=== PATIENT | female | born 1950 | race Caucasian/White ===

== ENCOUNTER 2024-09-07 09:25 | Inpatient (IN) ==
[2024-09-07] MEDS: cefTRIAXone 1 gm/50 mL D5W 1 GM/50 ML BAG IV ONE (11:07)
[2024-09-07 11:12] LABS: ABS Basophils 0.1 10^3/uL (0.0-0.1); ABS Eosinophils 0.7 10^3/uL (0.0-0.5); ABS Lymphocytes 1.4 10^3/uL (1.0-4.8); ABS Monocytes 1.2 10^3/uL (0.0-0.9); ABS Neutrophils 5.9 10^3/uL (1.5-7.6); ABS Nucleated RBC 0.01 10^3/ul; Eosinophil % 7.3 %; Hematocrit 29.5 % (35-45); Hemoglobin 9.6 g/dL (11.5-14.3); Lymphocyte % 15.3 %; Mean Corpuscular Hemoglobin 28.1 pg (27-33); Mean Corpuscular Hgb Conc 32.8 g/dL (31-36); Mean Corpuscular Volume 85.8 fL (80-97); Mean Platelet Volume 9.6 fL (7.5-11.2); Nucleated Red Blood Cells % 0.1 %/100WBC (0.0-0.8); Platelet Count 225 10^3/uL (150-450); Red Blood Count 3.43 10^6/uL (3.63-4.92); Red Cell Distribution Width 18.8 % (12-17); White Blood Count 9.2 10^3/uL (3.8-11.8)
[2024-09-07 11:26] LABS: Activated Partial Thrombo Time 38.7 seconds (26.0-38.0); INR 1.66 (0.85-1.14)
[2024-09-07 11:43] LABS: Albumin 3.3 g/dL (3.5-5.7); Albumin/Globulin Ratio 1.3 (1-3); C Reactive Protein 52.99 mg/L (<8.01); Calcium 8.3 mg/dL (8.6-10.3); Creatinine, Serum 2.21 mg/dL (0.51-0.95); Globulin 2.6 g/dL (2-4); Potassium 2.8 mmol/L (3.5-5.0); Total Protein 5.9 g/dL (6.4-8.9); eGFR CKD-EPI 22.5 (>60)
[2024-09-07] MEDS: Lactated Ringers 1000 ml BAG 1,000 ML IV ONE ×3 (11:53→18:30)
[2024-09-07 12:31] LABS: High Sensitivity Troponin 1 Hr 9 pg/mL (<15)
[2024-09-07] MEDS: Azithromycin 500 mg/250 ml NS 500 MG/250 ML BAG IVPB ONE (12:33)
[2024-09-07 15:12] LABS: Urine Appearance Clear; Urine Bilirubin Negative (Negative); Urine Blood Negative (Negative); Urine Color Yellow; Urine Glucose Trace (Negative); Urine Ketones Negative (Negative); Urine Nitrite Negative (Negative); Urine Protein 1+ (>=30 mg/dL) (Negative); Urine Specific Gravity 1.019 (1.002-1.030); Urine Urobilinogen Negative (Negative)
[2024-09-07 15:13] LABS: Urine Bacteria Absent /HPF (Absent); Urine Red Blood Cell Trace(0-2/hpf) /HPF (0-Trace); Urine White Blood Cell Trace(0-5/hpf) /HPF (0-Trace)
[2024-09-07 15:21] LABS: Magnesium 2.2 mg/dL (1.9-2.7)
[2024-09-07 15:31] LABS: Direct Bilirubin 0.4 mg/dL (0.03-0.18); Indirect Bilirubin 0.6 mg/dL (0.3-1.0)
[2024-09-07 15:36] LABS: TSH Ultra Thyroid Stim Horm 3.29 mcIU/mL (0.34-5.60)
[2024-09-07] MEDS: KCL 20 MEQ/100 ML IVPREMIX 20 MEQ/100 ML BAG IV SCH (17:10)
[2024-09-07] MEDS ORDERED: Naloxone Nasal Spray 4 MG/0.1 ML NASAL.SPR INTRANASAL PRN (17:15)
[2024-09-07] MEDS ORDERED: Polyethylene Glycol 3350 17 GM PACKET PO PRN (17:30)
[2024-09-07] MEDS ORDERED: Senna TAB 8.6 mg TAB PO PRN (17:30)
[2024-09-07] MEDS ORDERED: cefTRIAXone 1 gm/50 mL D5W 1 GM/50 ML BAG IV SCH (18:00)
[2024-09-07] MEDS: Magnesium Hydroxide LIQ 30 ML UDC PO SCH (20:22)
[2024-09-07] MEDS: Senna TAB 8.6 mg TAB PO SCH (20:34)
[2024-09-08 00:05] LABS: Calcium 8.3 mg/dL (8.6-10.3); Creatinine, Serum 1.47 mg/dL (0.51-0.95); Potassium 3.6 mmol/L (3.5-5.0); eGFR CKD-EPI 36.8 (>60)
[2024-09-08] MEDS: Potassium Chloride LIQUID 20 MEQ/15 ML LIQUID PO ONE (02:49)
[2024-09-08 06:01] LABS: ABS Basophils 0.1 10^3/uL (0.0-0.1); ABS Eosinophils 0.6 10^3/uL (0.0-0.5); ABS Lymphocytes 1.2 10^3/uL (1.0-4.8); ABS Monocytes 0.9 10^3/uL (0.0-0.9); ABS Neutrophils 4.5 10^3/uL (1.5-7.6); Eosinophil % 8.1 %; Hematocrit 28.2 % (35-45); Hemoglobin 9.1 g/dL (11.5-14.3); Lymphocyte % 16.7 %; Mean Corpuscular Hemoglobin 27.7 pg (27-33); Mean Corpuscular Hgb Conc 32.1 g/dL (31-36); Mean Corpuscular Volume 86.1 fL (80-97); Mean Platelet Volume 9.5 fL (7.5-11.2); Nucleated Red Blood Cells % 0.1 %/100WBC (0.0-0.8); Platelet Count 189 10^3/uL (150-450); Red Blood Count 3.28 10^6/uL (3.63-4.92); Red Cell Distribution Width 19.1 % (12-17); White Blood Count 7.2 10^3/uL (3.8-11.8)
[2024-09-08 06:28] LABS: Albumin 2.7 g/dL (3.5-5.7); Albumin/Globulin Ratio 1.1 (1-3); Calcium 8.1 mg/dL (8.6-10.3); Creatinine, Serum 1.15 mg/dL (0.51-0.95); Globulin 2.4 g/dL (2-4); Magnesium 1.8 mg/dL (1.9-2.7); Phosphorus 1.8 mg/dL (2.5-5.0); Potassium 3.6 mmol/L (3.5-5.0); Total Bilirubin 0.8 mg/dL (0.2-1.0); Total Protein 5.1 g/dL (6.4-8.9); eGFR CKD-EPI 49.4 (>60)
[2024-09-08] MEDS ORDERED: Lorazepam PYXIS KEY PRN (09:33)
[2024-09-08] MEDS: LORazepam 2 mg VIAL 1 ml IV PUSH PRN ×2 (09:45→17:24)
[2024-09-08] MEDS: cefTRIAXone 1 gm/50 mL D5W 1 GM/50 ML BAG IV SCH (10:27)
[2024-09-08] MEDS: Azithromycin 500 mg/250 ml NS 500 MG/250 ML BAG IVPB SCH (10:38)
[2024-09-08] MEDS ORDERED: Zosyn per Pharmacy NOTE FOLLOW UP SCH (11:00)
[2024-09-08] MEDS ORDERED: Vancomycin per Pharmacy 1 EA NOTE FOLLOW UP SCH (11:00)
[2024-09-08] MEDS: Iodixanol 320 (CONTRAST) 100 ML SDV IV ONE (11:41)
[2024-09-08] MEDS: Piperacillin/Tazobac 3.375 BAG 3.375 GM/100 ML BAG IV ONE (12:19)
[2024-09-08] MEDS: Vancomycin 1,000 MG in NS 0.9% 250 ml 250 ML IVPB ONE (12:22)
[2024-09-08] MEDS: Magnesium Sulfate 2 gm BAG 2 GM/50 ML BAG IVPB ONE (12:29)
[2024-09-08] MEDS: Polyethylene Glycol 3350 17 GM PACKET PO SCH (13:12)
[2024-09-08] MEDS: DULoxetine DR 60 mg CAP PO SCH (15:40)
[2024-09-08] MEDS: Lactated Ringers 1000 ml BAG 1,000 ML IV SCH (16:24)
[2024-09-08] MEDS: ZOSYN 3.375 GM Q8H per EXTENDED INFUSION IV SCH (16:28)
[2024-09-08] MEDS: Enoxaparin 80 MG/0.8 ML SYR SUBCUT SCH (16:29)
[2024-09-08] MEDS: Haloperidol 5 mg/ml SDV IV/IM 5 MG/ML AMP IV SLOW PU ONE (23:21)
[2024-09-09] MEDS: Haloperidol 5 mg/ml SDV IV/IM 5 MG/ML AMP IV SLOW PU ONE (04:04)
[2024-09-09 05:58] LABS: ABS Basophils 0.1 10^3/uL (0.0-0.1); ABS Eosinophils 0.3 10^3/uL (0.0-0.5); ABS Lymphocytes 1.3 10^3/uL (1.0-4.8); ABS Monocytes 1.2 10^3/uL (0.0-0.9); ABS Neutrophils 7.9 10^3/uL (1.5-7.6); Eosinophil % 2.5 %; Hematocrit 31.9 % (35-45); Hemoglobin 10.4 g/dL (11.5-14.3); Lymphocyte % 12.4 %; Mean Corpuscular Hgb Conc 32.7 g/dL (31-36); Mean Corpuscular Volume 85.7 fL (80-97); Mean Platelet Volume 10.1 fL (7.5-11.2); Platelet Count 209 10^3/uL (150-450); Red Blood Count 3.73 10^6/uL (3.63-4.92); Red Cell Distribution Width 18.8 % (12-17); White Blood Count 10.8 10^3/uL (3.8-11.8)
[2024-09-09 06:26] LABS: Calcium 8.3 mg/dL (8.6-10.3); Creatinine, Serum 0.75 mg/dL (0.51-0.95); Magnesium 1.7 mg/dL (1.9-2.7); Potassium 3.4 mmol/L (3.5-5.0); eGFR CKD-EPI 82.5 (>60)
[2024-09-09 08:05] LABS: Total Bilirubin 1.2 mg/dL (0.2-1.0)
[2024-09-09] MEDS: Haloperidol 5 mg/ml SDV IV/IM 5 MG/ML AMP IV SLOW PU PRN (08:55)
[2024-09-09] MEDS ORDERED: Haloperidol 5 mg/ml SDV IV/IM 5 MG/ML AMP IV SLOW PU PRN ×2 (11:21→14:02)
[2024-09-09] MEDS: LORazepam 2 mg VIAL 1 ml IV PUSH PRN (11:36)
[2024-09-09] MEDS ORDERED: Vancomycin 1000 MG in NS 0.9% 250 ML IVPB SCH (12:30)
[2024-09-09] MEDS ORDERED: LORazepam 2 mg VIAL 1 ml IV PUSH PRN (12:31)
[2024-09-09] MEDS: Acetaminophen IV 1 GM/100ML 1,000 MG/100 ML BAG IV PRN (12:47)
[2024-09-09] MEDS: cefTRIAXone 1 gm/50 mL D5W 1 GM/50 ML BAG IV SCH (13:14)
[2024-09-09] MEDS: LORazepam 2 mg VIAL 1 ml ONE (13:49)
[2024-09-09 14:07] LABS: Folate 10.03 ng/mL (5.90-24.80)
[2024-09-09 15:14] LABS: Phosphorus 1.4 mg/dL (2.5-5.0)
[2024-09-09] MEDS: fentaNYL 100 mcg/2 ml 50 MCG/ML VIAL IV SLOW PU ONE (15:25)
[2024-09-09] MEDS: Thiamine 100 MG/ML 2 ml VIAL 100 MG, Folic Acid IV 1 MG, Multiple Vitamin IV ADULT 10 M... IV ONE (15:35)
[2024-09-09] MEDS: fentaNYL 100 mcg/2 ml 50 MCG/ML VIAL ONE (15:37)
[2024-09-09] MEDS: Thiamine 100 MG/ML 2 ml VIAL 500 MG in NS 0.9% 250 ml 250 ML IV SCH (16:18)
[2024-09-09] MEDS: Magnesium Sulfate 2 gm BAG 2 GM/50 ML BAG IVPB ONE (16:18)
[2024-09-09] MEDS: Potassium Phosphate IV 30 MMOL in NS 0.9% 250 ml 250 ML IVPB ONE (16:19)
[2024-09-09] MEDS: Morphine ER 15 mg TAB ** extended release PO SCH (17:22)
[2024-09-09] MEDS: Potassium Chloride LIQUID 20 MEQ/15 ML LIQUID PO ONE (17:22)
[2024-09-09] MEDS: Morphine ORAL.SOLN 10 mg 2 mg/ml UDC 5 ml (10 mg) PO SCH (17:43)
[2024-09-09 18:08] LABS: Urine Appearance Clear; Urine Bilirubin Negative (Negative); Urine Blood 2+ (Negative); Urine Color Light-Yellow; Urine Glucose 2+ (>=150 mg/dL) (Negative); Urine Ketones 1+ (Negative); Urine Nitrite Negative (Negative); Urine Protein Trace (Negative); Urine Specific Gravity 1.014 (1.002-1.030); Urine Urobilinogen Negative (Negative)
[2024-09-09 18:11] LABS: Urine Bacteria Absent /HPF (Absent); Urine Red Blood Cell 3+(>10/hpf) /HPF (0-Trace); Urine Squamous Epithelial Cell Present /HPF (Absent); Urine White Blood Cell Trace(0-5/hpf) /HPF (0-Trace)
[2024-09-09] MEDS: fentaNYL 100 mcg/2 ml 50 MCG/ML VIAL IV SLOW PU PRN (18:31)
[2024-09-10] MEDS: hydrALAZINE 20 mg/ml 1 ML Vial IV IV SLOW PU PRN (00:28)
[2024-09-10 04:23] LABS: ABS Basophils 0.1 10^3/uL (0.0-0.1); ABS Eosinophils 0.4 10^3/uL (0.0-0.5); ABS Lymphocytes 0.9 10^3/uL (1.0-4.8); ABS Monocytes 0.7 10^3/uL (0.0-0.9); ABS Neutrophils 4.8 10^3/uL (1.5-7.6); ABS Nucleated RBC 0.01 10^3/ul; Eosinophil % 6.5 %; Hematocrit 29.2 % (35-45); Hemoglobin 9.4 g/dL (11.5-14.3); Lymphocyte % 12.7 %; Mean Corpuscular Hemoglobin 27.5 pg (27-33); Mean Corpuscular Hgb Conc 32.2 g/dL (31-36); Mean Corpuscular Volume 85.4 fL (80-97); Mean Platelet Volume 9.8 fL (7.5-11.2); Nucleated Red Blood Cells % 0.1 %/100WBC (0.0-0.8); Platelet Count 166 10^3/uL (150-450); Red Blood Count 3.42 10^6/uL (3.63-4.92); Red Cell Distribution Width 18.5 % (12-17); White Blood Count 6.9 10^3/uL (3.8-11.8)
[2024-09-10 05:25] LABS: Calcium 7.6 mg/dL (8.6-10.3); Creatinine, Serum 0.72 mg/dL (0.51-0.95); Phosphorus 2.2 mg/dL (2.5-5.0); Potassium 3.4 mmol/L (3.5-5.0); eGFR CKD-EPI 86.6 (>60)
[2024-09-10 05:41] LABS: TSH Ultra Thyroid Stim Horm 6.88 mcIU/mL (0.34-5.60)
[2024-09-10] MEDS: Potassium Chloride LIQUID 20 MEQ/15 ML LIQUID PO ONE (05:59)
[2024-09-10] MEDS: KCL 20 MEQ/100 ML IVPREMIX 20 MEQ/100 ML BAG IV ONE (05:59)
[2024-09-10] MEDS ORDERED: KCL 20 MEQ/100 ML IVPREMIX 20 MEQ/100 ML BAG IV ONE (08:00)
[2024-09-10] MEDS: Potassium & Sodium Phos 250 mg = 1 PACKET PO ONE (08:36)
[2024-09-10] MEDS ORDERED: KCL 10 MEQ/50 ML IVPREMIX 10 MEQ/50 ML BAG IV ONE (10:00)
[2024-09-10 10:24] LABS: T4, Total 9.27 mcg/dL (6.09-12.23)
[2024-09-10] MEDS: Sodium Phosphate IV 30 MMOL in NS 0.9% 250 ml 250 ML IV ONE (10:39)
[2024-09-10] MEDS: Lactated Ringers 1000 ml BAG 500 ML IV SCH (11:43)
[2024-09-10 17:08] LABS: Calcium 7.6 mg/dL (8.6-10.3); Creatinine, Serum 0.9 mg/dL (0.51-0.95); Potassium 4.1 mmol/L (3.5-5.0); eGFR CKD-EPI 66.3 (>60)
[2024-09-10] MEDS: Lactated Ringers 1000 ml BAG 1,000 ML IV SCH (17:37)
[2024-09-10 17:41] LABS: Magnesium 1.9 mg/dL (1.9-2.7); Phosphorus 6.5 mg/dL (2.5-5.0)
[2024-09-10] MEDS: Gadoteridol (CONTRAST) 279.3 MG/ML 10 ML IV ONE (22:09)
[2024-09-11 05:01] LABS: ABS Basophils 0.1 10^3/uL (0.0-0.1); ABS Eosinophils 0.5 10^3/uL (0.0-0.5); ABS Lymphocytes 1.1 10^3/uL (1.0-4.8); ABS Monocytes 0.9 10^3/uL (0.0-0.9); ABS Neutrophils 7.2 10^3/uL (1.5-7.6); ABS Nucleated RBC 0.01 10^3/ul; Eosinophil % 4.7 %; Hematocrit 27.4 % (35-45); Hemoglobin 8.9 g/dL (11.5-14.3); Mean Corpuscular Hemoglobin 27.8 pg (27-33); Mean Corpuscular Hgb Conc 32.4 g/dL (31-36); Mean Corpuscular Volume 85.8 fL (80-97); Mean Platelet Volume 9.9 fL (7.5-11.2); Nucleated Red Blood Cells % 0.1 %/100WBC (0.0-0.8); Platelet Count 148 10^3/uL (150-450); Red Blood Count 3.19 10^6/uL (3.63-4.92); Red Cell Distribution Width 18.9 % (12-17); White Blood Count 9.8 10^3/uL (3.8-11.8)
[2024-09-11 05:20] LABS: Calcium 7.5 mg/dL (8.6-10.3); Creatinine, Serum 0.85 mg/dL (0.51-0.95); Magnesium 1.7 mg/dL (1.9-2.7); Phosphorus 3.5 mg/dL (2.5-5.0); Potassium 3.7 mmol/L (3.5-5.0)
[2024-09-11] MEDS: Magnesium Sulfate 2 gm BAG 2 GM/50 ML BAG IVPB ONE (08:00)
[2024-09-11] MEDS ORDERED: Vancomycin Trough Check NOTE FOLLOW UP ONE (12:00)
[2024-09-12] MEDS ORDERED: Lorazepam PYXIS KEY PRN (03:01)
[2024-09-12] MEDS: Albuterol HFA INHALER 8 gm MDI INH PRN (03:34)
[2024-09-12] MEDS: LORazepam 2 mg VIAL 1 ml IV PUSH ONE (03:34)
[2024-09-12 06:11] LABS: ABS Eosinophils 0.3 10^3/uL (0.0-0.5); ABS Monocytes 0.9 10^3/uL (0.0-0.9); ABS Nucleated RBC 0.01 10^3/ul; Eosinophil % 2.7 %; Hemoglobin 9.3 g/dL (11.5-14.3); Lymphocyte % 10.2 %; Mean Corpuscular Hemoglobin 27.6 pg (27-33); Mean Corpuscular Hgb Conc 32.2 g/dL (31-36); Mean Corpuscular Volume 85.7 fL (80-97); Mean Platelet Volume 9.7 fL (7.5-11.2); Nucleated Red Blood Cells % 0.1 %/100WBC (0.0-0.8); Platelet Count 141 10^3/uL (150-450); Red Blood Count 3.39 10^6/uL (3.63-4.92); Red Cell Distribution Width 18.4 % (12-17); White Blood Count 10.2 10^3/uL (3.8-11.8)
[2024-09-12 07:02] LABS: Creatinine, Serum 0.8 mg/dL (0.51-0.95); Magnesium 1.8 mg/dL (1.9-2.7); Potassium 3.5 mmol/L (3.5-5.0); eGFR CKD-EPI 76.3 (>60)
[2024-09-12] MEDS: Magnesium Sulfate 2 gm BAG 2 GM/50 ML BAG IVPB ONE (09:58)
[2024-09-13 13:53] VITALS: BP 92/58
== END 2024-09-13 14:25 | disposition home health service (06) | DRG 896 ==
LOC: EDHOLD 09:25 → ED 09:25 → SUATTDRO 14:26 → MEDTELE 16:21 → SUATTDRO 09-09 12:35 → ICU 09-09 15:07 → MEDTELE 09-11 21:33
PROVIDERS: ADMIT Internal Medicine; ATTEND Internal Medicine